=== PATIENT | male | born 1990 ===

== ENCOUNTER → 2018-08-22 11:46 | Outpatient (CLI) | payer OTHER | END | disposition home or self-care (01) | LOC: LAB 11:46 | DX: R07.0 Pain in throat (principal) ==

== ENCOUNTER → 2020-09-29 | Outpatient (CLI) | payer OTHER | END | disposition home or self-care (01) | LOC: RAD 12:15 | PROVIDERS: ATTEND Physical Medicine & Rehabilitation | DX: S62.603A Fracture of unspecified phalanx of left middle finger, initial encounter for closed fracture (principal) ==